=== PATIENT | female | born 1995 | race Caucasian/White ===

== ENCOUNTER 2020-02-28 13:07 | Emergency (ER) | payer SELFPAY ==
--- NOTE | 2020-02-28 14:10 | EDPHYS ---
Physician Documentation [facility] Name: Jose Brand Age: 24 yrs Sex: Female : 1995 Arrival Date: 02/28/2020 Time: 13:13 Bed 14 Private MD: ED Physician Brandon Brown HPI: 02/27 13:26 This 24 yrs old Female presents to ER via Ambulatory with complaints of mya Toothache. 13:26 The patient presents with broken tooth/teeth, pain, swelling. The problem is located in mya the lower left third molar and lower right second molar. Onset: The symptoms/episode began/occurred 2 day(s) ago. Duration: The symptoms are continuous, and are steadily getting worse. Modifying factors: The symptoms are alleviated by nothing, the symptoms are aggravated by chewing, cold fluids, talking. Associated signs and symptoms: Pertinent positives: inability to eat, pain, swelling, Pertinent negatives: chills, fever. Severity of symptoms: At their worst the symptoms were moderate, in the emergency department the symptoms have improved, mildly. The patient has experienced similar episodes in the past, several times. 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 - Social history:: Smoking status: Patient reports the use of cigarette tobacco products, smokes one-half pack cigarettes per day. - Family history:: not pertinent. ROS: 13:26 Constitutional: Negative for fever, chills, and weight loss, Eyes: Negative for injury, mya pain, redness, and discharge, Neck: Negative for injury, pain, and swelling, Cardiovascular: Negative for chest pain, palpitations, and edema, Respiratory: Negative for shortness of breath, cough, wheezing, and pleuritic chest pain, Abdomen/GI: Negative for abdominal pain, nausea, vomiting, diarrhea, and constipation, Back: Negative for injury and pain, : Negative for injury, bleeding, discharge, and swelling, MS/Extremity: Negative for injury and deformity, Skin: Negative for injury, rash, and discoloration, Neuro: Negative for headache, weakness, numbness, tingling, and seizure, Psych: Negative for depression, anxiety, suicide ideation, homicidal ideation, and hallucinations, Allergy/Immunology: Negative for hives, rash, and allergies, Endocrine: Negative for neck swelling, polydipsia, polyuria, polyphagia, and marked weight changes, Hematologic/Lymphatic: Negative for swollen nodes, abnormal bleeding, and unusual bruising. 13:26 ENT: Positive for Teeth pain Exam: 13:26 Constitutional: This is a well developed, well nourished patient who is awake, alert, mya and in no acute distress. Eyes: Pupils equal round and reactive to light, extra-ocular motions intact. Lids and lashes normal. Conjunctiva and sclera are non-icteric and not injected. Cornea within normal limits. Periorbital areas with no swelling, redness, or edema. Neck: Trachea midline, no thyromegaly or masses palpated, and no cervical lymphadenopathy. Supple, full range of motion without nuchal rigidity, or vertebral point tenderness. No Meningismus. Chest/axilla: Normal chest wall appearance and motion. Nontender with no deformity. No lesions are appreciated. Cardiovascular: Regular rate and rhythm with a normal S1 and S2. No gallops, murmurs, or rubs. Normal PMI, no JVD. No pulse deficits. Respiratory: Lungs have equal breath sounds bilaterally, clear to auscultation and percussion. No rales, rhonchi or wheezes noted. No increased work of breathing, no retractions or nasal flaring. Abdomen/GI: Soft, non-tender, with normal bowel sounds. No distension or tympany. No guarding or rebound. No evidence of tenderness throughout. Back: No spinal tenderness. No costovertebral tenderness. Full range of motion. Skin: Warm, dry with normal turgor. Normal color with no rashes, no lesions, and no evidence of cellulitis. MS/ Extremity: Pulses equal, no cyanosis. Neurovascular intact. Full, normal range of motion. Neuro: Awake and alert, GCS 15, oriented to person, place, time, and situation. Cranial nerves II-XII grossly intact. Motor strength 5/5 in all extremities. Sensory grossly intact. Cerebellar exam normal. Normal gait. 13:26 Head/face: Noted is tenderness, that is mild, of the right jaw and left jaw. Vital Signs: 13:13 BP 130 / 84; Pulse 97; Resp 19 S; Temp 97.7(TE); Pulse Ox 100% on R/A; Weight 71.21 kg ca1 (R); Height 5 ft. 7 in. (170.18 cm) (R); Pain 7/10; 13:57 BP 112 / 81; Pulse 81; Resp 18; Temp 98(TE); Pulse Ox 99% on R/A; Pain 7/10; ks7 14:22 BP 97 / 54; Pulse 81; Resp 18; Temp 98(TE); Pulse Ox 100% on R/A; Pain 7/10; ks7 14:50 BP 92 / 63; Pain 0/10; ks7 14:51 BP 92 / 63; Pain 0/10; ks7 13:13 Body Mass Index 24.59 (71.21 kg, 170.18 cm) ca1 MDM: 13:20 Patient medically screened. [facility] 14:08 Differential diagnosis: dental caries, gingivitis, dental abscess. Data reviewed: vital mya signs, nurses notes, lab test result(s). Data interpreted: manager monitoring: rate is 81 beats/min, rhythm is regular. Counseling: I had a detailed discussion with the patient and/or guardian regarding: the historical points, exam findings, and any diagnostic results supporting the discharge/admit diagnosis, lab results, the need for outpatient follow up, for definitive care, a dentist. ED course: non toxic, well hydrated, no trismus. 02/27 14:18 Order name: Urine Dipstick--Ancillary (enter results) 02/27 14:18 Order name: Urine --Ancillary (enter results) 02/27 13:25 Order name: Urine Dipstick-Ancillary (obtain specimen); Complete Time: 14:08 mya 02/27 13:25 Order name: Urine Test (obtain specimen); Complete Time: 14:08 [facility] Administered Medications: 14:21 Drug: Motrin 600 mg Route: PO; ks7 14:51 Follow up: BP 92 / 63; Pain 0/10 Adult ks7 14:21 Drug: Clindamycin 300 mg Route: PO; ks7 14:50 Follow up: BP 92 / 63; Pain 0/10 Adult ks7 Disposition: 02/28/20 14:10 Discharged to Home. Impression: Dental caries, Dental root caries. - Condition is Stable. - Discharge Instructions: Dental Caries, Adult, Dental Pain, Dental Pain, [id number], Diet and Dental Disease. - Prescriptions for Clindamycin HCl 150 mg Oral Capsule - take 2 capsule by ORAL route every 6 hours for 7 days; 56 capsule. Ibuprofen 600 mg Oral Tablet - take 1 tablet by ORAL route every 8 hours As needed take with food; 21 tablet. - Medication Reconciliation Form, Thank You Letter, Antibiotic Education, Prescription Opioid Use form. - Follow up: Private Physician; When: 2 - 3 days; Reason: Recheck today's complaints, Continuance of care, Re-evaluation by your physician. Follow up: Jett Knowles; When: 2 - 3 days; Reason: Recheck today's complaints, Re-evaluation by your physician. - Problem is new. - Symptoms have improved. Signatures: Dispatcher [employer] EDMS Brandon Brown MD MD cha Acob, Cheryl, RN RN [facility] Stella Hull RN RN ks7 Corrections: (The following items were deleted from the chart) 14:52 14:10 02/28/2020 14:10 Discharged to Home. Impression: Dental caries; Dental root ks7 caries. Condition is Stable. Discharge Instructions: Dental Caries, Adult, Dental Pain, Dental Pain, [id number], Diet and Dental Disease. Prescriptions for Clindamycin HCl 150 mg Oral Capsule - take 2 capsule by ORAL route every 6 hours for 7 days; 56 capsule, Ibuprofen 600 mg Oral Tablet - take 1 tablet by ORAL route every 8 hours As needed take with food; 21 tablet. and Forms are Medication Reconciliation Form, Thank You Letter, Antibiotic Education, Prescription Opioid Use. Follow up: Private Physician; When: 2 - 3 days; Reason: Recheck today's complaints, Continuance of care, Re-evaluation by your physician. Follow up: Jett Knowles; When: 2 - 3 days; Reason: Recheck today's complaints, Re-evaluation by your physician. Problem is new. Symptoms have improved. mya
--- NOTE | 2020-02-28 14:10 | ER ---
Nurse's Notes [facility] Name: Jose Brand Age: 24 yrs Sex: Female : 1995 Arrival Date: 02/28/2020 Time: 13:13 Bed 14 Private MD: Diagnosis: Dental caries;Dental root caries Presentation: 02/27 13:13 Chief complaint: Patient states: Tooth broke off since beginning of the month, not ca1 thinks it's infected. Reports pain. Coronavirus screen: Patient denies a cough. Patient denies shortness of breath or difficulty breathing. Patient denies measured and/or subjective temperature greater than 100.4F prior to today's visit. Patient denies travel on a cruise ship or to a country the [facility] currently lists as an affected area. Patient denies contact with known and/or suspected case of COVID-19. Proceed with normal triage. Ebola Screen: Patient negative for fever greater than or equal to 101.5 degrees Fahrenheit, and additional compatible Ebola Virus Disease symptoms Patient denies exposure to infectious person. Patient denies travel to an Ebola-affected area in the 21 days before illness onset. No symptoms or risks identified at this time. Initial Sepsis Screen: Does the patient meet any 2 criteria? No. Patient's initial sepsis screen is negative. Does the patient have a suspected source of infection? No. Patient's initial sepsis screen is negative. Risk Assessment: Do you want to hurt yourself or someone else? Patient reports no desire to harm self or others. Onset of symptoms was February 28, 2020. 13:13 Method Of Arrival: Ambulatory ca1 13:13 Acuity: ANGELA 5 ca1 Triage Assessment: 13:57 General: Appears in no apparent distress. Behavior is calm, cooperative, Smells of. ks7 Pain: Complains of pain in mouth upper right molar Pain currently is 7 out of 10 on a pain scale. Quality of pain is described as aching, Pain began 2 weeks. EENT: Reports pain toothache, R upper molar. 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 - Social history:: Smoking status: Patient reports the use of cigarette tobacco products, smokes one-half pack cigarettes per day. - Family history:: not pertinent. Screenin:59 Abuse screen: Denies threats or abuse. Denies injuries from another. Nutritional ks7 screening: No deficits noted. Tuberculosis screening: No symptoms or risk factors identified. Fall Risk None identified. Assessment: 13:59 EENT: Reports broken tooth, R upper molar, pain x 2 weeks. ks7 14:50 Reassessment: Patient states feeling better. ks7 Vital Signs: 13:13 BP 130 / 84; Pulse 97; Resp 19 S; Temp 97.7(TE); Pulse Ox 100% on R/A; Weight 71.21 kg ca1 (R); Height 5 ft. 7 in. (170.18 cm) (R); Pain 7/10; 13:57 BP 112 / 81; Pulse 81; Resp 18; Temp 98(TE); Pulse Ox 99% on R/A; Pain 7/10; ks7 14:22 BP 97 / 54; Pulse 81; Resp 18; Temp 98(TE); Pulse Ox 100% on R/A; Pain 7/10; ks7 14:50 BP 92 / 63; Pain 0/10; ks7 14:51 BP 92 / 63; Pain 0/10; ks7 13:13 Body Mass Index 24.59 (71.21 kg, 170.18 cm) ca1 ED Course: 13:13 Patient arrived in ED. as 13:15 Triage completed. ca1 13:19 Arm band placed on right wrist. ca1 13:20 Brandon Brown MD is Attending Physician. [facility] 13:37 Stella Hull, LYNDON is Primary Nurse. ks7 13:59 Patient has correct armband on for positive identification. Bed in low position. Call ks7 light in reach. Side rails up X2. 13:59 No provider procedures requiring assistance completed. Patient did not have IV access ks7 during this emergency room visit. 14:10 Jett Knowles DDS is Referral Physician. [facility] Administered Medications: 14:21 Drug: Motrin 600 mg Route: PO; ks7 14:51 Follow up: BP 92 / 63; Pain 0/10 Adult ks7 14:21 Drug: Clindamycin 300 mg Route: PO; ks7 14:50 Follow up: BP 92 / 63; Pain 0/10 Adult ks7 Outcome: 14:10 Discharge ordered by . mya 14:50 Discharged to home ambulatory. ks7 14:50 Condition: good 14:50 Discharge instructions given to patient, Instructed on discharge instructions, follow up and referral plans. medication usage, Demonstrated understanding of instructions, follow-up care, medications, Prescriptions given X 2. 14:52 Patient left the ED. ks7 Signatures: Brandon Brown MD MD cha Martinez, Amelia as Acob, Cheryl, RN RN Stella Acevedo RN RN ks7
[2020-02-28] MEDS ORDERED: IBUPROFEN 200 MG TAB PO ONE (14:28)
[2020-02-28] MEDS ORDERED: IBUPROFEN 400 MG TAB ONE (14:29)
[2020-02-28 15:12] VITALS: TEMP 98
[2020-02-28 15:13] VITALS: O2SAT 100
[2020-02-28 15:14] VITALS: BP 92/63
[2020-02-28 21:49] LABS: Urine Blood NEGATIVE (NEG); Urine Glucose NEGATIVE (NEG); Urine Protein NEGATIVE (NEG); Urine Specific Gravity 1.015 (1.005-1.030)
== END 2020-02-28 14:52 | disposition home or self-care (01) ==
LOC: ER 13:07
DX: K02.7 Dental root caries (principal); K02.9 Dental caries, unspecified; E07.9 Disorder of thyroid, unspecified; F17.210 Nicotine dependence, cigarettes, uncomplicated; Z88.1 Allergy status to other antibiotic agents; Z88.5 Allergy status to narcotic agent; Z88.8 Allergy status to other drugs, medicaments and biological substances
CPT/HCPCS: 81003; 81025; 99283

== ENCOUNTER 2020-03-11 12:55 | Emergency (ER) | payer SELFPAY ==
--- NOTE | 2020-03-11 13:39 | ER ---
Nurse's Notes [facility] Name: Jose Brand Age: 24 yrs Sex: Female : 1995 Arrival Date: 03/11/2020 Time: 12:59 Bed 6 Private MD: Diagnosis: Dental pain: Right maxilla Presentation: 03/11 13:06 Chief complaint: Patient states: Right upper jaw tooth pain for 5 days. Here about 2 ll1 weeks ago for dental pain on there other side of her mouth. No fever. Coronavirus screen: Client denies travel out of the [place] in the last 14 days. At this time, the client does not indicate any symptoms associated with coronavirus-19. Ebola Screen: Patient denies travel to an Ebola-affected area in the 21 days before illness onset. Initial Sepsis Screen: Does the patient meet any 2 criteria? No. Patient's initial sepsis screen is negative. Risk Assessment: Do you want to hurt yourself or someone else? Patient reports no desire to harm self or others. Onset of symptoms was March 06, 2020. 13:06 Method Of Arrival: Ambulatory ll1 13:06 Acuity: ANGELA 5 ll1 Historical: - Allergies: 13:08 Geodon; ll1 13:08 Keflex; ll1 13:08 NYSTATIN; ll1 13:08 Vicodin; ll1 13:08 zipraxon; ll1 - PMHx: 13:08 Thyroid problem; ll1 - PSHx: 13:08 None; ll1 - Immunization history:: Flu vaccine is not up to date. - Social history:: Smoking status: Patient reports the use of cigarette tobacco products, smokes one pack cigarettes per day. Patient uses currently at [facility] for drug/alcohol addiction.. Screenin:37 Abuse screen: Denies threats or abuse. Denies injuries from another. Nutritional ss screening: No deficits noted. Tuberculosis screening: Never had TB. Fall Risk None identified. Assessment: 13:36 General: Appears uncomfortable, Behavior is cooperative, tearful. Denies fever, feeling ss ill, fatigue, chills. Pain: Complains of pain in right buccal mucosa Pain currently is 10 out of 10 on a pain scale. Quality of pain is described as aching, throbbing, Pain began 4-5 days ago Is continuous. Neuro: Level of Consciousness is awake, alert, obeys commands, Oriented to person, place, time, Appropriate for age. Cardiovascular: Capillary refill < 3 seconds is brisk in bilateral fingers. Respiratory: Airway is patent Respiratory effort is even, unlabored, Respiratory pattern is regular, symmetrical. GI: Reports nausea, Patient currently denies diarrhea, vomiting. EENT: Oral mucosa is moist. Throat is clear Reports Pt states, "my top wisdom tooth broke up a while back and now it hurts all on that right side.". Derm: Skin is intact, is healthy with good turgor, Skin is dry, Skin is pink, warm \\T\\ dry. normal. Musculoskeletal: Circulation, motion, and sensation intact. Range of motion: intact in all extremities, Swelling absent. Vital Signs: 13:06 BP 135 / 95; Pulse 85; Resp 17; Temp 98.5; Pulse Ox 100% ; Weight 74.84 kg; Height 5 ll1 ft. 7 in. (170.18 cm); Pain 10/10; 13:06 Body Mass Index 25.84 (74.84 kg, 170.18 cm) ll1 ED Course: 12:59 Patient arrived in ED. ds1 13:02 Coleman Aguiar MD is Attending Physician. kdr 13:08 Triage completed. ll1 13:09 Arm band placed on Patient placed in an exam room, on a stretcher. ll1 13:36 Roxanna Trivedi, LYNDON is Primary Nurse. ss 13:37 Patient has correct armband on for positive identification. Bed in low position. Call light in reach. 13:37 No provider procedures requiring assistance completed. 13:51 Patient did not have IV access during this emergency room visit. hb Administered Medications: 13:46 Drug: Amoxicillin 500 mg Route: PO; ss 13:46 Drug: traMADol 50 mg Route: PO; Outcome: 13:39 Discharge ordered by . kdr 13:51 Discharged to home ambulatory. hb 13:51 Condition: stable 13:51 Discharge instructions given to patient, Instructed on discharge instructions, follow up and referral plans. medication usage, Demonstrated understanding of instructions, follow-up care, medications, Prescriptions given X 2. 13:51 Patient left the ED. hb Signatures: Coleman Aguiar MD MD [facility] Zoraida Burciaga ds1 Roxanna Trivedi, RN RN ss Kya Ignacio, RN RN hb Jose Cameron, RN RN ll1
--- NOTE | 2020-03-11 13:39 | EDPHYS ---
Physician Documentation [facility] Name: Jose Brand Age: 24 yrs Sex: Female : 1995 Arrival Date: 03/11/2020 Time: 12:59 Bed 6 Private MD: ED Physician Coleman Aguiar HPI: 03/11 13:46 This 24 yrs old Female presents to ER via Ambulatory with complaints of kdr Toothache. 13:46 The patient presents with pain, swelling. The problem is located in the right buccal kdr mucosa, upper right third molar, upper right second molar, upper right first molar and upper right second bicuspid. Onset: The symptoms/episode began/occurred Last weekend. Duration: The symptoms Since last weekend. Modifying factors: The symptoms are alleviated by nothing, the symptoms are aggravated by air, chewing. Associated signs and symptoms: The patient has no apparent associated signs or symptoms. Severity of symptoms: At their worst the symptoms were mild, moderate, just prior to arrival, in the emergency department the symptoms are unchanged. The patient has not experienced similar symptoms in the past. The patient has not recently seen a physician. Historical: - Allergies: 13:08 Geodon; ll1 13:08 Keflex; ll1 13:08 NYSTATIN; ll1 13:08 Vicodin; ll1 13:08 zipraxon; ll1 - PMHx: 13:08 Thyroid problem; ll1 - PSHx: 13:08 None; ll1 - Immunization history:: Flu vaccine is not up to date. - Social history:: Smoking status: Patient reports the use of cigarette tobacco products, smokes one pack cigarettes per day. Patient uses currently at [facility] for drug/alcohol addiction.. ROS: 13:46 Constitutional: Negative for fever, chills, and weight loss, Eyes: Negative for injury, kdr pain, redness, and discharge, Neck: Negative for injury, pain, and swelling, Cardiovascular: Negative for chest pain, palpitations, and edema, Respiratory: Negative for shortness of breath, cough, wheezing, and pleuritic chest pain, Abdomen/GI: Negative for abdominal pain, nausea, vomiting, diarrhea, and constipation, Back: Negative for injury and pain, : Negative for injury, bleeding, discharge, and swelling, MS/Extremity: Negative for injury and deformity, Skin: Negative for injury, rash, and discoloration, Neuro: Negative for headache, weakness, numbness, tingling, and seizure activity. Psych: Negative for depression, anxiety, suicide ideation, homicidal ideation, and hallucinations, Allergy/Immunology: Negative for hives, rash, and allergies, Endocrine: Negative for neck swelling, polydipsia, polyuria, polyphagia, and marked weight changes, Hematologic/Lymphatic: Negative for swollen nodes, abnormal bleeding, and unusual bruising. 13:46 ENT: Positive for dental pain, of the right cheek and right buccal mucosa. Exam: 13:46 Constitutional: This is a well developed, well nourished patient who is awake, alert, kdr and in no acute distress. Head/Face: Normocephalic, atraumatic. Eyes: Pupils equal round and reactive to light, extra-ocular motions intact. Lids and lashes normal. Conjunctiva and sclera are non-icteric and not injected. Cornea within normal limits. Periorbital areas with no swelling, redness, or edema. Neck: Trachea midline, no thyromegaly or masses palpated, and no cervical lymphadenopathy. Supple, full range of motion without nuchal rigidity, or vertebral point tenderness. No Meningismus. Chest/axilla: Normal chest wall appearance and motion. Nontender with no deformity. No lesions are appreciated. 13:46 ENT: Dental exam: pain, that is mild, specifically in the upper right third molar (#1), upper right second molar (#2) and upper right first molar (#3). Vital Signs: 13:06 BP 135 / 95; Pulse 85; Resp 17; Temp 98.5; Pulse Ox 100% ; Weight 74.84 kg; Height 5 ll1 ft. 7 in. (170.18 cm); Pain 10/10; 13:06 Body Mass Index 25.84 (74.84 kg, 170.18 cm) ll1 MDM: 13:39 Patient medically screened. kdr 13:46 Data reviewed: vital signs, nurses notes. Counseling: I had a detailed discussion with kdr the patient and/or guardian regarding: the historical points, exam findings, and any diagnostic results supporting the discharge/admit diagnosis, the need for outpatient follow up. Administered Medications: 13:46 Drug: Amoxicillin 500 mg Route: PO; ss 13:46 Drug: traMADol 50 mg Route: PO; Disposition: 03/11/20 13:39 Discharged to Home. Impression: Dental pain: Right maxilla. - Condition is Stable. - Discharge Instructions: Dental Pain, [id number]. - Prescriptions for Amoxicillin 500 mg Oral Capsule - take 1 capsule by ORAL route every 8 hours for 10 days; 30 tablet. Tramadol 50 mg Oral Tablet - take 1 tablet by ORAL route every 8 hours as needed; 12 tablet. - Medication Reconciliation Form, Thank You Letter, Antibiotic Education, Prescription Opioid Use form. - Follow up: Private Physician; When: 2 - 3 days; Reason: If symptoms return, Further diagnostic work-up, Recheck today's complaints, Continuance of care, Re-evaluation by your physician. - Problem is new. - Symptoms are unchanged. Signatures: Coleman Aguiar MD MD [facility] Roxanna Trivedi RN RN Kya Ignacio RN RN Jose Cameron RN RN ll1 Corrections: (The following items were deleted from the chart) 13:51 13:39 03/11/2020 13:39 Discharged to Home. Impression: Dental pain: Right maxilla. hb Condition is Stable. Forms are Medication Reconciliation Form, Thank You Letter, Antibiotic Education, Prescription Opioid Use. Follow up: Private Physician; When: 2 - 3 days; Reason: If symptoms return, Further diagnostic work-up, Recheck today's complaints, Continuance of care, Re-evaluation by your physician. Problem is new. Symptoms are unchanged. kdr
[2020-03-11] MEDS ORDERED: AMOXICILLIN TRIHYDR 250 MG CAP ONE (13:51)
[2020-03-11] MEDS ORDERED: TRAMADOL HCL 50 MG TAB ONE (13:52)
[2020-03-11 13:58] VITALS: BP 135/95; TEMP 98.5; O2SAT 100
--- OUTSIDE RECORDS SUMMARY | 2020-03-11 14:33 | XMS REPORT | Clinical Summary ---
:1995 Author Organization [facility] Address [address] [place] [address] Care Team Providers Name Role Phone Asked, Pcp Primary Care Provider Unavailable Allergies Active Allergy Reactions Severity Noted Date Comments Ziprasidone Hcl Anaphylaxis High 02/02/2020 Hydrocodone Hives 02/02/2020 Cephalexin Hives 02/02/2020 Nystatin Other (See Comments) 02/02/2020 Burn Olanzapine Anaphylaxis High 02/02/2020 Medications Medication Sig Dispensed Refills Start Date End Date Status risperiDONE Take 1 tablet (1 60 tablet 0 02/04/2020 (RisperDAL) 1 MG mg total) by 0 tabletIndications: mouth 2 (two) depression treatment times a day for adjunct 30 days .additional medications to treat depression. benztropine Take 1 tablet (1 60 tablet 0 02/04/2020 (COGENTIN) 1 MG mg total) by 0 tabletIndications: mouth 2 (two) drug-induced times a day for extrapyramidal 30 days reaction .extrapyramidal symptoms as a result of taking the medication. divalproex (DEPAKOTE Take 4 capsules 120 capsule 0 02/05/2020 SPRINKLE) 125 (500 mg total) by 0 mgIndications: mouth nightly for bipolar disorder 30 days .manic-depression . hydrOXYzine (ATARAX) Take 1 tablet (25 30 tablet 0 02/04/2020 25 MG mg total) by 0 tabletIndications: mouth every 4 anxiety (four) hours as needed for anxiety for up to 30 days .anxious. nicotine (NICODERM Place 1 patch on 30 patch 0 02/05/2020 CQ) 21 mg/24 the skin daily 0 hrIndications: for 30 days .stop smoking cessation smoking. Active Problems Problem Noted Date Major depressive disorder, recurrent episode 0 Methamphetamine abuse 02/02/2020 Resolved Problems Problem Noted Date Resolved Date Depression 02/02/2020 02/02/2020 Encounters Date Type Specialty Care Team Description 02/12/2020 Telephone Home Health Services Parag Littlejohn, PhD 02/02/2020 - Hospital Encounter Psychiatry Paige Joseph 02/04/2020 MD Viji Perkins Iram Fatima, MD 02/01/2020 Intake Access after 03/11/2019 Social History Tobacco Use Types Packs/Day Years Used Date Current Every Day Smoker Cigarettes 1.5 9 Smokeless Tobacco: Never Used Tobacco Cessation: Ready to Quit: No; Co unseling Given: Yes Alcohol Use Drinks/Week oz/Week Comments Never Alcohol Habits Answer Date Recorded How often do you have a drink containing alcohol? Never 02/02/2020 How many drinks containing alcohol do you have on a typical Not asked day when you are drinking? How often do you have six or more drinks on one occasion? No t asked Sex Assigned at Date Recorded Not on file Job Start Date Occupation Industry Not on file Not on file Not on file Travel History Travel Start Travel End No recent travel history available. Last Filed Vital Signs Vital Sign Reading Time Taken Comments Blood Pressure 103/59 02/04/2020 5:57 AM CDT Pulse 75 02/04/2020 5:57 AM CDT Temperature 37 C (98.6 F) 02/04/2020 12:22 PM CDT Respiratory Rate 18 02/04/2020 5:57 AM CDT Oxygen Saturation 99% 02/04/2020 5:57 AM CDT Inhaled Oxygen Concentration - - Weight 70.8 kg (156 lb 1.6 oz) 02/04/2020 5:57 AM CDT Height 170.2 cm (5' 7") 02/02/2020 5:35 AM CDT Body Mass Index 24.45 02/02/2020 5:35 AM CDT Plan of Treatment Health Maintenance Due Date Last Done Comments CHLAMYDIA SCREENING 2011 CERVICAL CANCER SCREENING 2016 INFLUENZA VACCINE 03/06/2020 Procedures Procedure Name Priority Date/Time Associated Comments Diagnosis CHLAMYDIA GONORRHOEAE Routine 02/04/2020 12:00 Re sults for this AND TRICHOMONAS PANEL PM CDT proced ure are in the results section. SYPHILIS TOTAL Routine 02/02/2020 5:57 Results f or this ANTIBODY AM CDT procedure are i n the results section. LIPID PANEL Routine 02/02/2020 5:57 Results for this AM CDT procedure are i n the results section. HIV AG/AB COMBINATION Routine 02/02/2020 5:57 Re sults for this AM CDT procedure are i n the results section. HEMOGLOBIN A1C Routine 02/02/2020 5:57 Results f or this AM CDT procedure are i n the results section. HCG QUALITATIVE, Routine 02/02/2020 5:57 Results for this SERUM SCREEN AM CDT procedure are i n the results section. after 03/11/2019 Results Chlamydia gonorrhoeae and trichomonas panel (02/04/2020 12:00 PM CDT) Chlamydia Negative for Chlamydia trachomatis. [facility] [place] [facility] trachomatis by PCR Comment: HOSPITAL Specimen Information Specimen Source: Urine Specimen Site: Clean catch Neisseria Negative for [place] [facility] gonorrhoeae by PCR [facility] gonorrhoeae. Trichomonas Negative for [place] [facility] vaginalis by PCR Trichomonas [facility] vaginalis. Specimen Urine Performing Organization Address City/[facility]/Zipcode Phone Number [facility] DEPARTMENT OF PATHOLOGY AND [address] [place] [address] [phone] [address] Syphilis total antibody (02/02/2020 5:57 AM CDT) Syphilis total Non-reactiveComment Non-reactive [facility] antibody : No serological HOSPITAL evidence of syphilis infection. Specimen Blood Performing Organization Address City/State/Zipcode Phone Number [facility] DEPARTMENT OF PATHOLOGY AND [address] [place] [address] [phone] [address] HIV Ag/Ab combination (02/02/2020 5:57 AM CDT) HIV Ag/Ab combination Non-reactive Non-reactive [facility] Specimen Blood Performing Organization Address City/[facility]/Zipcode Phone Number [facility] DEPARTMENT OF PATHOLOGY AND [address] [place] [phone] [facility] [address] [place] [address] hCG qualitative, serum screen (02/02/2020 5:57 AM CDT) hCG qualitative, NegativeComment: [facility] serum Sensitivity of HCG HOSPITAL test: 25 mIU/mL Specimen Blood Performing Organization Address City/[facility]/Zipcode Phone Number [facility] DEPARTMENT OF PATHOLOGY AND [address] [place] [phone] [facility] [address] [place] [phone] Hemoglobin A1c (02/02/2020 5:57 AM CDT) Hemoglobin A1C 5.6 4.0 - 5.6 % [facility] Comment: HOSPITAL HbA1c cutoffs for diagnosing diabetes: 4.0% - 5.6% = normal 5.7% - 6.4% = increased risk for diabetes (prediabetes )9 >=6.5% = diabetes9 Goals for glycemic control (ADA 2016) < 7.0% Target for non adults with diabetes. More or less stringent targets may be appropriate for individual patients. <7.5% Target for Children and adolescents with type 1 diabetes. Specimen Blood Performing Organization Address City/State/Zipcode Phone Number [facility] DEPARTMENT OF PATHOLOGY AND [address] [place] [address] [phone] [address] Lipid panel (02/02/2020 5:57 AM CDT) Cholesterol 107 <200 mg/dL [facility] Triglycerides 84 <150 mg/dL [facility] HDL cholesterol 43 >40 mg/dL [facility] LDL cholesterol 56Comment: Result <100 mg/dL [place] obtained by direct [facility] LDL measurement [facility] Lipid panel [facility] interpretation Comment: [facility] Total Cholesterol (mg/dL) HOSPIT [place] <200 Desirable 200-239 Borderline-high >=240 High Triglycerides (mg/dL) <150 Normal 150-199 Borderline-high 200-499 High >=500 Very high HDL Cholesterol (mg/dL) <40 Low (male) <40 Low (female) LDL Cholesterol (mg/dL) <100 Optimal 100-129 Near or above optimal 130-159 Borderline-high 160-189 High >=190 Very high Risk Catergories that modify LDL goals. Risk Catergories LDL goal (mg/d L) CHD and CHD risk equivalent <100 (10-year risk >20%) Multiple (2+) risk factors <130 (10-year risk =<20%) 0-1 risk factors <160 (<10-year risk) Defining levels of lipids in metabolic syndrome Triglycerides >=150 mg/dL HDL Cholesterol Men <40 mg /dL Women <40 mg/ dL Non-HDL cholesterol is a second target for therapy in persons with high triglycerides (>=200 mg/dL) Specimen Blood Performing Organization Address City/State/Zipcode Phone Number [facility] DEPARTMENT OF PATHOLOGY AND [address] [place], [place] [address] GENOMIC MEDICINE [facility] [address] [place] [phone] after 03/11/2019 Advance Directives For more information, please contact: [phone] Type Date Recorded Patient Primary Care Physician Explanati on Advance Directives, Living Will 02/02/2020 2:59 AM and Medical Power of Knowledge Manager
--- OUTSIDE RECORDS SUMMARY | 2020-03-11 14:33 | XMS REPORT | Summary of Care ---
:1995 Author Organization [facility] Address [address] [place] [address] Care Team Providers Name Role Phone Pcp, Does Not Have A Primary Care Provider Reason for Referral MRI/CAT Scan (STAT) Status Reason Specialty Diagnoses / Referred By Referred To Procedures Contact Contact New Request Diagnostic Diagnoses Drug intoxication with perceptual disturbance Generalized abdominal pain Wendy Trujillo Radiology Procedures CT Abdomen/Pelvis W/O Contrast MD Ilana [address] [place] [phone] Reason for Visit Reason Comments Abdominal Pain Auth/Cert Status Reason Specialty Diagnoses / Referred By Referred To Procedures Contact Contact Emergency Medicine [facility] r[facility] Dept [address] [place] [phone] Fax: Encounter Details Date Type Department Care Team Description 01/27/2020 - Emergency [facility] Wendy Trujillo Drug intoxic ation with perceptual disturbance (Primary Dx); 01/28/2020 Department MD Ilana Generalized abdominal pain [address] [place] [phone] Allergies Active Allergy Reactions Severity Noted Date Comments Ziprasidone Hcl Anaphylaxis High 10/13/2019 Cephalexin Itching 11/19/2016 Pt originally s aid she wasn't allergic to any medicines and t hen she revealed itchin g with keflex Hydrocodone-Acetaminophen Hives Low 10/13/2019 Olanzapine Anaphylaxis High 10/13/2019 documented as of this encounter (statuses as of 01/28/2020) Medications No known medicationsdocumented as of this encounter (statuses as of 01/28/2020) Active Problems Problem Noted Date Tobacco use disorder 08/20/2013 Enlarged thyroid 08/20/2013 Overview: TSH and Free T4 ordered, referral to HR to evaluate documented as of this encounter (statuses as of 01/28/2020) Resolved Problems Problem Noted Date Resolved Date Anemia, 03/14/2014 12/22/2016 Normal delivery 03/13/2014 05/09/2014 Overview: Labor at term; ; minor lac repair ed Active Labor SROM 03/12/2014 03/13/2014 Research Study: ARRIVE-Induction of Labor Arm 03/02/2014 05/09/2014 Overview: This patient was consented in the ARRIVE Research Study on 03/02/14. IRB # [id number], PI Dr. Yancey Patient was randomized into the study on 03/09/2014 and will be in the following group: Induction of Labor Arm i If favorable (Montero score ? 5), undergo induction via oxytocin at 39.0 39.4 weeks. If unfavorable (Montero score < 5), undergo cervical ripening at 39.0 39.4 weeks (method left to the discretion of the provider) in conjunction with or followed by oxytocin,unless a contraindication arises. Induction group should be given adequate time to labor before considered failed. Failed = at least 12 hours have elapsed since both ROM and use of uterine stimulant, and patient remains in latent labor. 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 of this encounter (statuses as of 01/28/2020) Immunizations Name Administration Dates Next Due DTAP 12/25/2001, 06/24/2001, 03/26/2001, 11/04/1998 DTP 03/20/1996, 1995, 1995 HEPATITIS A 02/09/2003, 06/24/2001, 03/26/2001 HIB 4 Dose Schedule 03/20/1996, 1995, 1995 HPV 05/12/2014, 03/13/2014 Hep B, Adol or Pedi Dosage 12/25/2001, 06/24/2001, 1, 03/20/1996, 1995, 1995 MMR 02/09/2003, 11/04/1998, 03/20/1996 Meningococcal Polysaccharide (groups 03/01/2009 A, C, Y and W-135) conjugate vaccine (MCV4P) PPD (TB) 02/09/2003 Polio (IPV/OPV) 06/24/2001, 03/26/2001, 03/20/1996, 1995, 1995 TDAP 12/17/2013, 03/01/2009 Td 02/09/2003 Varicella (varivax)(chicken pox) 03/26/2001, 11/04/1998 documented as of this encounter Social History Tobacco Use Types Packs/Day Years Used Date Former Smoker Smokeless Tobacco: Never Used Alcohol Use Drinks/Week oz/Week Comments Not Currently Sex Assigned at Date Recorded Not on file Job Start Date Occupation Industry Not on file Not on file Not on file Travel History Travel Start Travel End No recent travel history available. COVID-19 Exposure Response Date Recorded In the last month, have you been in contact with No / Unsure 01/27/2020 8:36 PM CDT someone who was confirmed or suspected to have Coronavirus / COVID-19? documented as of this encounter Last Filed Vital Signs Vital Sign Reading Time Taken Comments Blood Pressure 120/76 01/28/2020 12:37 AM CDT Pulse 93 01/28/2020 12:37 AM CDT Temperature 36.8 C (98.2 F) 01/28/2020 12:37 AM CDT Respiratory Rate 18 01/28/2020 12:37 AM CDT Oxygen Saturation 99% 01/28/2020 12:37 AM CDT Inhaled Oxygen Concentration - - Weight 71.2 kg (157 lb) 01/27/2020 8:32 PM CDT Height - - Body Mass Index 24.59 10/13/2019 9:38 AM CDT documented in this encounter Discharge Instructions Wendy Prescott MD - 01/28/2020Diagnosis: Methamphetamine abuse, Drug intoxication, Abdominal pain Recommend follow-up with a primary care Doctor as needed. Return to ER and seek further medical attention for worsening symptoms, fever, persistent vomiting, any other concerns. May follow-up with a provider of your choice, such as: 1. A physician of your choice 2. [address] [place] [address], [address] [place] [address] 3. [facility], [address] [place] [address] If you wish to follow up with the [facility], you may try these options (clinic appointments available on a [id number] basis): 1. Schedule an appointment at [email or web address] 2. Call the [facility] Access Center at or 3. Call you [facility] physician's office directly if you are already an established [facility] patient. AttachmentsThe following attachments cannot be sent through Care Everywhere. Abdominal Pain, Adult (Chilean)Methamphetamine Abuse and Addiction, Understanding (Chilean)documented in this encounter Plan of Treatment Name Type Priority Associated Diagnoses Date/Ti ms CT Abdomen/Pelvis W/O IMAGING STAT Drug intoxication w ith 01/27/2020 11:15 PM Contrast perceptual distu rbance CDT Generalized abdominal pain Health Maintenance Due Date Last Done Comments HPV VACCINES (3 - Female 09/13/2014 05/12/2014, 03/13/2014 3-dose series) INFLUENZA VACCINE (Season 04/06/2020 Ended) CHLAMYDIA SCREENING 10/12/2020 10/13/2019, 03/29/2018, 12/22/2016, Additional history exists Depression Screening 10/12/2020 10/13/2019 PAP SMEAR 10/12/2022 10/13/2019, 12/22/2016 DTaP,Tdap,and Td Vaccines 12/18/2023 12/17/2013, 03/01/2009 , (8 - Td) 02/09/2003, Additional history exists VARICELLA VACCINES Completed 03/26/2001, 11/04/1998 PNEUMOCOCCAL 0-64 YEARS Aged Out No longe r eligible COMBINED SERIES based on patient 's age to complete this topic documented as of this encounter Procedures Procedure Name Priority Date/Time Associated Diagnosis Comme nts CT ABDOMEN PELVIS WO STAT 01/27/2020 11:15 PM Drug intoxica tion with CONTRAST CDT perceptual distu rbance Generalized abdominal pain Procedure Note - [facility], Radia nt Results Inft User - 01/27/2020 11:42 PM CDT EXAM: CT ABDOMEN AND PELVIS WITHOUT CONTRAST HISTORY: Flank pain, stone d isease suspected. COMPARISON: None. DOSE: Total exam DLP 453 mGy -cm TECHNIQUE AND FINDINGS: Cont iguous axial imaging from the level of the superior renal poles through the proximal femurs was performed without the intravenous administration o f contrast. Coronal and sagittal reconstructions were obtaine d. Auto mA and/or iterative reconstruction were used to reduce radiatio n dose. FINDINGS: LIVER: The majority of the l iver is excluded from [id number].. GALLBLADDER AND BILIARY TREE : No biliary ductal dilation. No gallbladder wall thickening. SPLEEN: The majority of the spleen is excluded from [id number]. PANCREAS: No ductal dilation or masses. ADRENAL GLANDS: No adrenal n odules. KIDNEYS: No hydronephrosis, stones, or masses. PERITONEUM AND RETROPERITONE UM: No free air or fluid. LYMPH NODES: No lymphadenopa thy. GI TRACT: No dilation or wal l thickening. Normal appendix (3:61). PELVIS/BLADDER: The urinary bladder is decompressed. No bladder stones detected. The uterus is unremarkable i n size and morphology for given age. The bilateral ovaries unremarkab le in size and morphology for given age. No adnexal masses. VESSELS: Unremarkable. BONES AND SOFT TISSUES: No s uspicious lytic or sclerotic bony lesions. IMPRESSION No renal, ureteral, or bladd er stones. Normal appendix. Preliminary Report Dictated by Resident: Gopi Resendiz Ikwuagwu EXTRA TUBE LT. GREEN STAT 01/27/2020 9:22 PM CDT CBC WITH DIFFERENTIAL STAT 01/27/2020 9:22 PM Drug intoxic ation Results for this CDT with perceptual procedure ar e in disturbance the results section. URINALYSIS STAT 01/27/2020 9:22 PM Drug intoxication Res ults for this CDT with perceptual procedure ar e in disturbance the results section. CBC WITH DIFFERENTIAL Routine 01/27/2020 9:22 PM Drug intoxic ation Results for this CDT with perceptual procedure ar e in disturbance the results section. GALV/CLC ONLY - URINE STAT 01/27/2020 9:22 PM Drug intoxic ation Results for this DRUG (IMMUNOASSAY) - CDT with perceptual proc edure are in 4 ER PANEL disturbance the results section. ETHANOL STAT 01/27/2020 9:22 PM Drug intoxication Res ults for this CDT with perceptual procedure ar e in disturbance the results section. BASIC METABOLIC PANEL STAT 01/27/2020 9:22 PM Drug intoxic ation Results for this (NA, K, CL, CO2, CDT with perceptual procedur e are in GLUCOSE, BUN, disturbance the results CREATININE, CA) section. HEPATIC FUNCTION STAT 01/27/2020 9:22 PM Drug intoxication Results for this PANEL (34672) CDT with perceptual procedure a re in (ALB,T.PRO,BILI disturbance the results T,BU/BC,ALT,AST,ALK section. PHOS) TEST, SERUM STAT 01/27/2020 9:22 PM Drug intoxic ation Results for this CDT with perceptual procedure ar e in disturbance the results section. LIPASE STAT 01/27/2020 9:22 PM Drug intoxication Res ults for this CDT with perceptual procedure ar e in disturbance the results section. documented in this encounter Results EXTRA TUBE LT. GREEN (01/27/2020 9:22 PM CDT) Specimen Blood Performing Organization Address City/State/Zipcode Phone Number [facility] CLIA: [id number], [address] [place], [place] [address] [facility] CBC WITH DIFFERENTIAL (01/27/2020 9:22 PM CDT) Pathologist Sig nature WBC 7.42 4.30 - 11.10 [facility] 10*3/L SERVICES RBC 4.17 3.93 - 5.25 [facility] 10*6/L SERVICES HGB 12.7 11.6 - 15.0 [facility] g/dL SERVICES HCT 37.0 35.7 - 45.2 % [facility] MCV 88.7 80.6 - 95.5 fL [facility] MCH 30.5 25.9 - 32.8 pg [facility] MCHC 34.3 31.6 - 35.1 [facility] g/dL SERVICES RDW-SD 41.1 39.0 - 49.9 fL [facility] RDW-CV 12.7 12.0 - 15.5 % [facility] PLT 333 166 - 358 [facility] 10*3/L SERVICES MPV 10.0 9.5 - 12.9 fL [facility] NRBC/100 WBC 0.0 0.0 - 10.0 /100 [facility] WBCs SERVICES NRBC x10^3 <0.01 10*3/L [facility] GRAN MAT (NEUT) % 64.4 % [facility] IMM GRAN % 0.30 % [facility] LYMPH % 27.0 % [facility] MONO % 7.8 % [facility] EOS % 0.1 % [facility] BASO % 0.4 % [facility] GRAN MAT x10^3(ANC) 4.78 1.88 - 7.09 [facility] 10*3/uL SERVICES IMM GRAN x10^3 <0.03 0.00 - 0.06 [facility] 10*3/uL SERVICES LYMPH x10^3 2.00 1.32 - 3.29 [facility] 10*3/uL SERVICES MONO x10^3 0.58 0.33 - 0.92 [facility] 10*3/uL SERVICES EOS x10^3 <0.03 (L) 0.03 - 0.39 [facility] 10*3/uL SERVICES BASO x10^3 0.03 0.01 - 0.07 [facility] 10*3/uL SERVICES Specimen Blood - VENOUS Performing Organization Address City/State/Zipcode Phone Number [facility] CLIA: [id number], [address] [place], [place] [address] [facility] Ethanol Level (01/27/2020 9:22 PM CDT) Pathologist Sig nature ALCOHOL <10 mg/dL [facility] Specimen Blood - VENOUS Narrative Performed At Toxic Greater than or equal to 80 mg/dL. [facility] NOTE: Whole blood values are approximately 10% to 15% lower than serum and plasma. Performing Organization Address [facility]/Zipcode Phone Number [facility] CLIA: [id number], [address] [place] [address] [facility] Drug Screen ER (01/27/2020 9:22 PM CDT) AMPHET Presumptive Negative [facility] Positive (A) SERVICES Cocaine Metabolite Negative Negative [facility] OPIATES Negative Negative [facility] THC Negative Negative [facility] Specimen Urine - URINE, CLEAN CATCH Narrative Performed At Urine Drug Cutoff Ranges [facility] Amphetamine: 1,000 ng/mL Cocaine: 150 ng/mL Opiates: 300 ng/mL Cannabinoids: 50 ng/mL The results are to be used only for medical (i.e., treatment) purposes. Unconfirmed screening results mus t not be used for non-medical purposes (e.g., employment cristina ting, legal testing). Performing Organization Address [facility] Hospital[facility] Phone Number [facility] CLIA: [id number], [address] [place] [address] [facility] Lipase Serum (01/27/2020 9:22 PM CDT) Pathologist Sig nature LIPASE 282 (H) 0 - 220 U/L [facility] Specimen Blood - VENOUS Performing Organization Address [facility] Hospital[facility]t Phone Number [facility] CLIA: [id number], [address] [place] [address] [facility] Hepatic Function Panel (ALB, T.PRO, BILI T, BU/BC, ALT, AST, ALK PHOS) (01/27/2020 9:22 PM CDT) Pathologist Sig nature TOTAL BILI 0.5 0.1 - 1.1 mg/dL [facility] BILI UNCON 0.7 0.1 - 1.1 mg/dL [facility] BILI CONJ 0.0 0.0 - 0.3 mg/dL [facility] T PROTEIN 7.4 6.3 - 8.2 g/dL [facility] ALBUMIN 4.5 3.5 - 5.0 g/dL [facility] ALK PHOS 67 34 - 122 U/L [facility] ALTv 16 5 - 35 U/L [facility] AST(SGOT) 25 13 - 40 U/L [facility] Specimen Blood - VENOUS Performing Organization Address City/State/Zipcode Phone Number [facility] CLIA: [id number], [address] [place], [place] [address] [facility] Basic Metabolic Panel (NA, K, CL, CO2, GLUCOSE, BUN, CREATININE, CA) (01/27/2020 9:22 PM CDT) [facility] NA 139 135 - 145 [facility] mmol/L SERVICES K 3.4 (L) 3.5 - 5.0 [facility] mmol/L SERVICES CL 103 98 - 108 mmol/L [facility] CO2 TOTAL 26 23 - 31 mmol/L [facility] AGAP 10 2 - 16 [facility] BUN 13 7 - 23 mg/dL [facility] GLUCOSE 108 70 - 110 mg/dL [facility] CREATININE 0.67 0.50 - 1.04 [facility] mg/dL SERVICES CALCIUM 9.4 8.6 - 10.6 [facility] mg/dL SERVICES eGFR Calculation 108.1 mL/min/1.73m2 [facility] (Non- SERVICES [place]) eGFR Calculation 131.1 mL/min/1.73m2 [facility] () SERVICES Specimen Blood - VENOUS Narrative Performed At Association of Glomerular Filtration Rate (GFR) and St aging [facility] of Kidney Disease* + + +------- ------ + | GFR (mL/min/1.73 m2) | With Kidney Damage | Wi gil Kidney Damage + + +------- ------ + | >90 | Stage one | Normal + + +------- ------ + | 60-89 | Stage two | Decreased GFR + + +------- ------ + | 30-59 | Stage three | Stage three + + +------- ------ + | 15-29 | Stage four | Stage four + + +------- ------ + | <15 (or dialysis) | Stage five | Stage five + + +------- ------ + *Each stage assumes the associated GFR level has been in effect for at least three months. Stages 1 to 5, wit h or without kidney disease, indicate chronic kidney disease. Notes: Determination of stages one and two (with eGFR >59mL/min/1.73 m2) requires estimation of kidney damag e for at least three months as defined by structural or func tional abnormalities of the kidney, manifested by either: Pathological abnormalities or Markers of kidney damage (including abnormalities in the composition of the blo od or urine or abnormalities in imaging tests) . Performing Organization Address City/State/Zipcode Phone Number [facility] CLIA: [id number], [address] [place] [address] [facility] Test, Serum (01/27/2020 9:22 PM CDT) Pathologist Sig nature PREG SERUM Negative [facility] Specimen Blood - VENOUS Narrative Performed At Less than 10 IU/L. If low titer or ectopic is [facility] suspected, resubmit specimen in 48-72 hours. Performing Organization Address [facility]/Zipcode Phone Number [facility] CLIA: [id number], [address] [place] [address] [facility] Urinalysis (01/27/2020 9:22 PM CDT) Pathologist Sig nature APPEARANCE Cloudy (A) Clear [facility] COLOR Bell (A) Yellow [facility] PH 5.0 4.8 - 8.0 [facility] SP GRAVITY 1.035 (H) 1.003 - 1.030 [facility] GLU U QUAL Normal Normal [facility] BLOOD Negative Negative [facility] KETONES 5 mg/dL (A) Negative [facility] PROTEIN 500 mg/dL (A) Negative [facility] UROBILIN 2.0 mg/dL (A) Normal [facility] BILIRUBIN Negative Negative [facility] NITRITE Negative Negative [facility] LEUK HEATHER Negative Negative [facility] RBC/HPF 6 (H) 0 - 3 HPF [facility] WBC/HPF 2 0 - 5 HPF [facility] BACTERIA Few (A) Negative [facility] MUCOUS Marked (A) Negative LPF [facility] SQ EPITH 6 (H) <=2 HPF [facility] CA OXALATE 49 (H) <=1 HPF [facility] HYAL CAST 11 (H) <=2 LPF [facility] Specimen Urine - URINE, CLEAN CATCH Performing Organization Address City/[facility]/Zipcode Phone Number [facility] CLIA: [id number], [address] [place] [address] [facility] documented in this encounter Visit Diagnoses Diagnosis Drug intoxication with perceptual distur bance - Primary Generalized abdominal pain Abdominal pain, generalized documented in this encounter"
--- OUTSIDE RECORDS SUMMARY | 2020-03-11 14:34 | XMS REPORT | Summary of Care ---
:1995 Author Organization [facility] - Health Address [address] [place] [address] Care Team Providers Name Role Phone Pcp, Does Not Have A Primary Care Provider Reason for Visit Reason Comments Suicidal ideation Auth/Cert Status Reason Specialty Diagnoses / Referred By Referred To Procedures Contact Contact Emergency Medicine [facility] r[facility] Dept [address] [place] [phone] Fax: Encounter Details Date Type Department Care Team Description 01/30/2020 - Emergency [facility] Philipp Chavez MD [address] [place] [address] [id number] [place] [address] Suicidal ideation (Primary Dx); 02/02/2020 Department Bryan Fletcher MD [address] [place] [address]. [place] [phone] Methamphetamine intoxication [address] [place] [phone] Allergies Active Allergy Reactions Severity Noted Date Comments Ziprasidone Hcl Anaphylaxis High 10/13/2019 Cephalexin Itching 11/19/2016 Pt originally s aid she wasn't nasir rgic to any medicine s and then she reveal ed itching with ke flex Nystatin Unknown - See comments 01/30/2020 Hydrocodone-Acetaminop Hives Low 10/13/2019 hen Olanzapine Anaphylaxis High 10/13/2019 documented as of this encounter (statuses as of 02/02/2020) Medications No known medicationsdocumented as of this encounter (statuses as of 02/02/2020) Active Problems Problem Noted Date Paranoia 01/28/2020 Emotional lability 01/28/2020 Methamphetamine abuse 01/28/2020 Tobacco use disorder 08/20/2013 Enlarged thyroid 08/20/2013 Overview: TSH and Free T4 ordered, referral to HR to evaluate documented as of this encounter (statuses as of 02/02/2020) Resolved Problems Problem Noted Date Resolved Date [...] stimulant, and patient remains in latent labor. 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 documented as of this encounter Last Filed Vital Signs Vital Sign Reading Time Taken Comments Blood Pressure 126/74 02/02/2020 12:49 AM CDT Pulse 68 02/02/2020 12:49 AM CDT Temperature 36.9 C (98.4 F) 02/02/2020 12:49 AM CDT Respiratory Rate 20 02/02/2020 12:49 AM CDT Oxygen Saturation 99% 02/02/2020 12:49 AM CDT Inhaled Oxygen Concentration - - Weight - - Height - - Body Mass Index - - documented in this encounter Plan of Treatment Health Maintenance Due Date [...] encounter Procedures Procedure Name Priority Date/Time Associated Comments Diagnosis COVID-19 (ID NOW RAPID STAT 01/30/2020 9:51 Suicidal ideat ion Results for this TESTING) PM CDT procedure are i n the results section. CBC WITH DIFFERENTIAL STAT 01/30/2020 9:51 Suicidal ideati on Results for this PM CDT procedure are i n the results section. URINALYSIS STAT 01/30/2020 9:51 Suicidal ideation Result s for this PM CDT procedure are i n the results section. CBC WITH DIFFERENTIAL STAT 01/30/2020 9:51 Suicidal ideati on Results for this PM CDT procedure are i n the results section. GALV/CLC ONLY - URINE STAT 01/30/2020 9:51 Suicidal ideati on Results for this DRUG (IMMUNOASSAY) - PM CDT procedu re are in COMPREHENSIVE DRUG the resul ts SCREEN section. ETHANOL STAT 01/30/2020 9:51 Suicidal ideation Result s for this PM CDT procedure are i n the results section. SALICYLATE STAT 01/30/2020 9:51 Suicidal ideation Result s for this PM CDT procedure are i n the results section. ACETAMINOPHEN STAT 01/30/2020 9:51 Suicidal ideation Resul ts for this PM CDT procedure are i n the results section. COMP. METABOLIC PANEL STAT 01/30/2020 9:51 Suicidal ideati on Results for this (95126) PM CDT procedure are i n the results section. TEST, SERUM STAT 01/30/2020 9:51 Suicidal ideati on Results for this PM CDT procedure are i n the results section. CREATINE KINASE STAT 01/30/2020 9:51 Suicidal ideation Res ults for this PM CDT procedure are i n the results section. documented in this encounter Results CBC WITH DIFFERENTIAL (01/30/2020 9:51 PM CDT) Pathologist Sig nature WBC 6.58 4.30 - 11.10 [facility] 10*3/L SERVICES RBC 3.98 3.93 - 5.25 [facility] 10*6/L SERVICES HGB 12.2 11.6 - 15.0 [facility] g/dL SERVICES HCT 35.2 (L) 35.7 - 45.2 % [facility] MCV 88.4 80.6 - 95.5 fL [facility] MCH 30.7 25.9 - 32.8 pg [facility] MCHC 34.7 31.6 - 35.1 [facility] g/dL SERVICES RDW-SD 41.8 39.0 - 49.9 fL [facility] SERVICES RDW-CV 12.8 12.0 - 15.5 % [facility] PLT 318 166 - 358 [facility] 10*3/L SERVICES MPV 9.9 9.5 - 12.9 fL [facility] SERVICES NRBC/100 WBC 0.0 0.0 - 10.0 /100 [facility] WBCs SERVICES NRBC x10^3 <0.01 10*3/L [facility] SERVICES GRAN MAT (NEUT) % 51.9 % [facility] IMM GRAN % 0.30 % [facility] LYMPH % 38.3 % [facility] MONO % 8.4 % [facility] EOS % 0.6 % [facility] SERVICES BASO % 0.5 % [facility] GRAN MAT x10^3(ANC) 3.42 1.88 - 7.09 [facility] 10*3/uL SERVICES IMM GRAN x10^3 <0.03 0.00 - 0.06 [facility] 10*3/uL SERVICES LYMPH x10^3 2.52 1.32 - 3.29 [facility] 10*3/uL SERVICES MONO x10^3 0.55 0.33 - 0.92 [facility] 10*3/uL SERVICES EOS x10^3 0.04 0.03 - 0.39 [facility] 10*3/uL SERVICES BASO x10^3 0.03 0.01 - 0.07 [facility] 10*3/uL SERVICES Specimen Blood - ARM, RIGHT Performing Organization Address [facility] Centercode Phone Number [facility] CLIA: [id number], [address] [place] [address] [address] [facility] TEST, SERUM (01/30/2020 9:51 PM CDT) Pathologist Sig nature PREG SERUM Negative [facility] Specimen Blood - ARM, RIGHT Narrative Performed At Less than 10 IU/L. If low titer or ectopic is [facility] suspected, resubmit specimen in 48-72 hours. Performing Organization Address [facility] Centercoin Phone Number [facility] CLIA: [id number], [address] [place] [address] [address] [facility] CREATINE KINASE (01/30/2020 9:51 PM CDT) Pathologist Sig nature CK 344 (H) 33 - 194 U/L [facility] Specimen Blood - ARM, RIGHT Performing Organization Address [facility] Centercoin Phone Number [facility] CLIA: [id number], [address] [place] [address] [address] [facility] ETHANOL (01/30/2020 9:51 PM CDT) Pathologist Sig nature ALCOHOL <10 mg/dL [facility] Specimen Blood - ARM, RIGHT Narrative Performed At Toxic Greater than or equal to 80 mg/dL. [facility] NOTE: Whole blood values are approximately 10% to 15% lower than serum and plasma. Performing Organization Address City/[facility] Centercode Phone Number [facility] CLIA: [id number], [address] [place] [address] [address] [facility] SALICYLATE (01/30/2020 9:51 PM CDT) Pathologist Sig nature SALICYLATE <10 mg/L [facility] Specimen Blood - ARM, RIGHT Narrative Performed At Therapeutic Range: [facility] Analgesic and Antipyretic Use 20-100 mg/L Anti-Inflammatory Use 1 00-250 mg/L Toxic Range: Greater than 300 mg/L Performing Organization Address City/State/Zipcode Phone Number [facility] CLIA: [id number], [address] [place] [address] [address] [facility] ACETAMINOPHEN (01/30/2020 9:51 PM CDT) Pathologist Sig nature ACETAMINOP <10.0 (L) 10.0 - 30.0 ug/mL [facility] SERVICE S Specimen Blood - ARM, RIGHT Narrative Performed At Toxic: Greater than 200 ug/mL @ 4 hour post ingestion or [facility] greater than 50 ug/mL @ 12 hour post ingestion Performing Organization Address City/[facility] Centercoin Phone Number [facility] CLIA: [id number], [address] [place] [address] [address] [facility] DRUG PANEL 2 URINE (01/30/2020 9:51 PM CDT) AMPHET Presumptive Negative [facility] Positive (A) SERVICES LIANG U Negative Negative [facility] BENZO U Negative Negative [facility] Cocaine Metabolite Negative Negative [facility] METHADONE Negative Negative [facility] OPIATES Negative Negative [facility] PCP Negative Negative [facility] THC Negative Negative [facility] Specimen Urine - URINE, CLEAN CATCH Narrative Performed At Urine Drug Cutoff Ranges [facility] Cocaine: 150 ng/mL Benzodiazepines: 200 ng/mL Methadone: 300 ng/mL Amphetamine: 1,000 ng/mL Opiates: 300 ng/mL Cannabinoids: 50 ng/mL Phencyclidine: 25 ng/mL Barbiturates: 200 ng/mL The results are to be used only for medical (i.e., treatment) purposes. Unconfirmed screening results mus t not be used for non-medical purposes (e.g., employment cristina ting, legal testing). Performing Organization Address City/State/Zipcode Phone Number [facility] CLIA: [id number], [address] [place] [address] [address] [facility] URINALYSIS (01/30/2020 9:51 PM CDT) Pathologist Sig nature APPEARANCE Hazy (A) Clear [facility] COLOR Yellow Yellow [facility] PH 5.0 4.8 - 8.0 [facility] SP GRAVITY 1.025 1.003 - 1.030 [facility] GLU U QUAL Normal Normal [facility] BLOOD Negative Negative [facility] KETONES 5 mg/dL (A) Negative [facility] PROTEIN 30 mg/dL (A) Negative [facility] UROBILIN Normal Normal [facility] BILIRUBIN Negative Negative [facility] NITRITE Negative Negative [facility] LEUK HEATHER 75/uL (A) Negative [facility] RBC/HPF 3 0 - 3 HPF [facility] WBC/HPF 2 0 - 5 HPF [facility] BACTERIA Few (A) Negative [facility] MUCOUS Marked (A) Negative LPF [facility] SQ EPITH 3 (H) <=2 HPF [facility] Specimen Urine - URINE, CLEAN CATCH Performing Organization Address City/State/Zipcode Phone Number [facility] CLIA: [id number], [address] [place] [address] [address] [facility] COVID-19 (ID NOW RAPID TESTING) (01/30/2020 9:51 PM CDT) SARS-CoV-2 Rapid ID Not Detected Not Detected [facility] NOW SERVICES Specimen Swab - NASOPHARYNGEAL SWAB Narrative Performed At ID NOW COVID-19 Assay is an isothermal nucleic acid [facility] amplification test intended for the qualitative detect ion of nucleic acid from SARS-CoV-2 viral RNA in nasopharynge al (B[employer] SH[employer] MECH[employer]IC) specimens. It is used under Emergency Use Authori zation (EUA) by FDA. The limit of detection (LOD) of the assa y is 125 Genome Equivalents/mL. A positive result is indicative of the presence of SARS-CoV-2 RNA. Clinical correlation with patient hi story and other diagnostic information is necessary to deter mine patient infection status. A negative (Not Detected) result does not preclude SARS-CoV-2 infection. In patients with clinical sympto ms and other tests that are consistent with SARS-CoV-2 infect ion, negative results should be treated as presumptive nega tive and a new specimen should be tested with alternative P CR molecular test. Invalid: Please collect a new specimen for repeat alison ent testing if clinically indicated. Performing Organization Address City/State/Zipcode Phone Number [facility] CLIA: [id number], [place], [place] [address] [address] [facility] COMP. METABOLIC PANEL ([id number]) (01/30/2020 9:51 PM CDT) Pathologist [facility] nature NA 139 135 - 145 [facility] mmol/L SERVICES K 3.1 (L) 3.5 - 5.0 [facility] mmol/L SERVICES CL 105 98 - 108 mmol/L [facility] CO2 TOTAL 24 23 - 31 mmol/L [facility] AGAP 10 2 - 16 [facility] BUN 9 7 - 23 mg/dL [facility] GLUCOSE 97 70 - 110 mg/dL [facility] CREATININE 0.58 0.50 - 1.04 [facility] mg/dL SERVICES TOTAL BILI 0.3 0.1 - 1.1 mg/dL [facility] CALCIUM 9.1 8.6 - 10.6 [facility] mg/dL SERVICES T PROTEIN 6.4 6.3 - 8.2 g/dL [facility] ALBUMIN 3.9 3.5 - 5.0 g/dL [facility] ALK PHOS 58 34 - 122 U/L [facility] ALTv 15 5 - 35 U/L [facility] AST(SGOT) 21 13 - 40 U/L [facility] eGFR Calculation 127.7 mL/min/1.73m2 [facility] (Non- SERVICES [place]) eGFR Calculation 154.8 mL/min/1.73m2 [facility] () SERVICES Specimen Blood - ARM, RIGHT Narrative Performed At Association of Glomerular Filtration Rate (GFR) and St aging [facility] of Kidney Disease* + + +------- ------ + | GFR (mL/min/1.73 m2) | With Kidney Damage | Wi out Kidney Damage + + +------- ------ + [...] . Performing Organization Address City/State/Zipcode Phone Number [facility] CLIA: [id number], [address] [place], [place] [address] [address] [facility] documented in this encounter Visit Diagnoses Diagnosis Suicidal ideation - Primary Methamphetamine intoxication documented in this encounter Administered Medications Medication Order MAR Action Action Date Dose Rate Site KCL (KLOR-CON M20) tablet 40 mEq Given 02/01/2020 11:33 PM CDT 40 mEq 40 mEq, Oral, ONCE, 1 dose, 02/02/20 at 0030, ELIDA documented in this encounter"
--- OUTSIDE RECORDS SUMMARY | 2020-03-11 14:34 | XMS REPORT | Summary of Care ---
:1995 Author Organization [facility] Address [address] [place] [address] Care Team Providers Name Role Phone Pcp, Does Not Have A Primary Care Provider Reason for Visit Reason Comments Vaginal Discharge Headache Auth/Cert Status Reason Specialty Diagnoses / Referred By Referred To Procedures Contact Contact Emergency Medicine [facility] rgency Dept [address] [place] [phone] Fax: Encounter Details Date Type Department Care Team Description 01/28/2020 - Emergency [facility] Faulconer, Maru, Methamph etamine abuse (Primary Dx); 01/29/2020 Department DO Emotional lability; [address] [place] [address]. [place] [phone] Allergies Active Allergy Reactions Severity Noted Date Comments Ziprasidone Hcl Anaphylaxis High 10/13/2019 Cephalexin Itching 11/19/2016 Pt originally s aid she wasn't allergic to any medicines and t hen she revealed itchin g with keflex Hydrocodone-Acetaminophen Hives Low 10/13/2019 Olanzapine Anaphylaxis High 10/13/2019 documented as of this encounter (statuses as of 01/29/2020) Medications No known medicationsdocumented as of this encounter (statuses as of 01/29/2020) Active Problems Problem Noted Date Paranoia 01/28/2020 Emotional lability 01/28/2020 Methamphetamine abuse 01/28/2020 Tobacco use disorder 08/20/2013 Enlarged thyroid 08/20/2013 Overview: TSH and Free T4 ordered, referral to HR to evaluate documented as of this encounter (statuses as of 01/29/2020) Resolved Problems Problem Noted Date Resolved Date [...] stimulant, and patient remains in latent labor. 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 documented as of this encounter Last Filed Vital Signs Vital Sign Reading Time Taken Comments Blood Pressure 119/83 01/28/2020 11:17 PM CDT Pulse 85 01/28/2020 11:17 PM CDT Temperature 36.8 C (98.3 F) 01/28/2020 9:42 PM CDT Respiratory Rate 16 01/28/2020 11:17 PM CDT Oxygen Saturation 100% 01/28/2020 11:17 PM CDT Inhaled Oxygen Concentration - - Weight 70.3 kg (155 lb) 01/28/2020 9:42 PM CDT Height - - Body Mass Index 24.28 10/13/2019 9:38 AM CDT documented in this encounter Discharge Instructions AttachmentsThe following attachments cannot be sent through Care Everywhere. Delusional Disorders, Understanding (Hungarian)Getting Help, Addiction (Hungarian) documented in this encounter Plan of Treatment [...] this topic documented as of this encounter Results Not on filedocumented in this encounter Visit Diagnoses Diagnosis Methamphetamine abuse - Primary Nondependent amphetamine or related acti ng sympathomimetic abuse, unspecified Emotional lability Paranoia Delusional disorder documented in this encounter
--- OUTSIDE RECORDS SUMMARY | 2020-03-11 14:34 | XMS REPORT | Summary of Care ---
:1995 Author Organization [facility] Address [address] [place] [address] Care Team Providers Name Role Phone Pcp, Does Not Have A Primary Care Provider Encounter Details Date Type Department Care Team Description 02/13/2020 Orders Only [facility] Doctor Unassigned, No [address] [facility] Name [address] [address] Allergies Active Allergy Reactions Severity Noted Date Comments Ziprasidone Hcl Anaphylaxis High 10/13/2019 Cephalexin Itching 11/19/2016 Pt originally s aid she wasn't nasir rgic to any medicine s and then she reveal ed itching with ke flex Nystatin Unknown - See comments 01/30/2020 Hydrocodone-Acetaminop Hives Low 10/13/2019 hen Olanzapine Anaphylaxis High 10/13/2019 documented as of this encounter (statuses as of 02/13/2020) Medications No known medicationsdocumented as of this encounter (statuses as of 02/13/2020) Active Problems Problem Noted Date Paranoia 01/28/2020 Emotional lability 01/28/2020 Methamphetamine abuse 01/28/2020 Tobacco use disorder 08/20/2013 Enlarged thyroid 08/20/2013 Overview: TSH and Free T4 ordered, referral to HR to evaluate documented as of this encounter (statuses as of 02/13/2020) Resolved Problems Problem Noted Date Resolved Date [...] stimulant, and patient remains in latent labor. 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 documented as of this encounter (statuses as of 02/13/2020) Immunizations Name Administration Dates Next Due DTAP [...] of this encounter Last Filed Vital Signs Not on filedocumented in this encounter Plan of Treatment Health Maintenance Due Date Last Done Comments HPV VACCINES (3 - Female 09/13/2014 05/12/2014, 03/13/2014 3-dose series) INFLUENZA VACCINE (#1) 2020 CHLAMYDIA SCREENING 10/12/2020 10/13/2019, 03/29/2018, 12/22/2016, Additional [...] Name Priority Date/Time Associated Diagnosis Comme nts EXTERNAL PROVIDER Routine 02/13/2020 12:01 AM CDT RECORDS documented in this encounter Results Not on filedocumented in this encounter Insurance Payer Benefit Plan Subscriber ID Effective Phone Address Typ e / Group Dates [employer] [place] [id number] xxxxxxxxx 2019-Pres [phone] [address] Medicaid WOMEN ent [address] [place] [address] documented as of this encounter
--- OUTSIDE RECORDS SUMMARY | 2020-03-11 14:34 | XMS REPORT | Continuity of Care Document ---
:1995 Author Organization [facility] t Address [address] [place] [address] [place] [id number] Care Team Providers Name Role Phone Asked, Pcp Primary Care Physician Unavailable Doctor Unassigned, Name Attending Clinician Unavailable Eron PhD, Jayce Attending Clinician Unavailable Crystal ROBISON, M. 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, disorder, 00:00: st recurrent recurrent 00 episode episode 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 00:00: st 00 Depression Depression Disease Resolve 2020-02-02 2020-02-02 Verduzco d 02-01 00:00:00 20:16:32 Method i 00:00: st 00 Allergies, Adverse Reactions, Alerts Allergy Allergy Status Severity Reaction(s) Onset Inactive Treating Comm ents Source Name Type Date Date Clinician Ziprasid Propensi Active Anaphylaxis [place] [facility] Hcl ty to 02-01 [facility] adverse 00:00: st reaction 00 s to drug Hydrocod Propensi Active Hives [place] one ty to 02-01 [facility] adverse 00:00: st reaction 00 s to drug Cephalex Propensi Active Hives [place] in ty to 02-01 [facility] adverse 00:00: st reaction 00 s to drug Nystatin Propensi Active Other (See Burn [place] ty to Comments) 02-01 Method[facility] adverse 00:00: st reaction 00 s to drug Olanzapi Propensi Active Anaphylaxis [place] ty to 02-01 Method[facility] adverse 00:00: st reaction 00 s to drug ziprasid DA Active [facility] one 01-27 [place] 00:00: d 00 [facility] cephalex DA Active U 2017-08 [facility] in 08-17 Clear 00:00: [place] 00 [facility] Social History Social Habit Start Date Stop Date Quantity Comments Source History of tobacco Cigarette Smoker [facility] use Catholic History [facility] Alcohol Std Drinks Method ist History [facility] Alcohol Binge Catholic Sex Assigned At [facility] Cigarettes smoked 2020-02-04 2020-02-04 [facility] current (pack per 00:00:00 00:00:[address] day) - Reported Cigarette 2020-02-04 2020-02-04 [facility] pack-years 00:00:00 00:00:00 [facility] Alcohol intake 2020-02-04 2020-02-04 Lifetime [facility] 00:00:00 00:00:00 non-drinker Catholic (finding) History [facility] 2020-02-02 2020-02-02 1 [facility] Alcohol Frequency 00:00:00 00:00:[address] Smoking Status Start Date Stop Date Source Current every day smoker 2020-02-04 00:00:00 Danielle ston [facility] Medications Ordered Filled Start Stop Current Ordering Indication Dosage Frequency Signature Comments Components Source Medication Medication Date Date Medication? Clinician (SIG) Name Name divalproex 2019- No bipolar 500mg QD Take 4 [facility] (DEPAKOTE 02-04 disorder capsules M ethodi SPRINKLE) 00:00: 23:59 ([address] 125 mg 00 :00 total) by mouth nightly for 30 days .manic-dep ression. nicotine 2019- No smoking 1{patch QD Place 1 [facility] (NICODERM 02-04 cessation } patch on Methodi CQ) 21 00:00: 23:[address] mg/24 hr 00 :00 daily for 30 days .stop smoking. risperiDONE 2019- depression 1mg Q.5D Take 1 [facility] (RisperDAL) 02-03 treatment tablet (1 Method[facility] 1 MG tablet 00:00: 23:59 adjunct mg total) st 00 :00 by mouth 2 (two) times a day for 30 days .additiona l medication s to treat depression . benztropine 2019- drug-induce 1mg Q.5D Take 1 [facility] (COGENTIN) 02-03 d tablet (1 Met hodi 1 MG tablet 00:00: 23:59 extrapyrami mg total) st 00 :00 suzanne by mouth 2 reaction (two) times a day for 30 days .extrapyra midal symptoms as a result of taking the medication . hydrOXYzine anxiety 25mg Q4H Take 1 [facility] (ATARAX) 25 02-03 tablet (25 M ethodi MG tablet 00:00: 23:59 mg total) st 00 :00 by mouth every 4 (four) hours as needed for anxiety for up to 30 days .anxious. Vital Signs Vital Name Observation Time Observation Value Comments Source Body temperature 2020-02-04 12:22:00 37 Farida Britney New Systolic blood 2020-02-04 05:57:38 103 mm[Hg] Gisela New pressure Diastolic blood 2020-02-04 05:57:38 59 mm[Hg] Jono New pressure Heart rate 2020-02-04 05:57:38 75 /min Dax New Respiratory rate 2020-02-04 05:57:38 18 /min Britney New Body weight 2020-02-04 05:57:38 70.806 kg Dax New BMI 2020-02-04 05:57:38 24.45 kg/m2 Dax New Oxygen saturation in 2020-02-04 05:57:38 99 /min Dax New Arterial blood by Pulse oximetry Body height 2020-02-02 05:35:00 170.2 cm Dax New Procedures Procedure Date / Time Performed Performing Clinician Sour e CHLAMYDIA GONORRHOEAE 2020-02-04 12:00:00 Dahiana Hallman AND TRICHOMONAS PANEL HCG QUALITATIVE, SERUM 2020-02-02 05:57:00 Paige Joseph SCREEN HEMOGLOBIN A1C 2020-02-02 05:57:00 Paige Joseph HIV AG/AB COMBINATION 2020-02-02 05:57:00 Paige Joseph LIPID PANEL 2020-02-02 05:57:00 Paige Joseph SYPHILIS TOTAL ANTIBODY 2020-02-02 05:57:00 Paige Joseph Plan of Care Planned Activity Planned Date Details Comments Source Future Scheduled 2020-03-06 INFLUENZA VACCINE Gisela loo Catholic Test 00:00:00 [code = INFLUENZA VACCINE] Future Scheduled 2016 Screening for [facility] Test 00:00:00 malignant neoplasm of cervix (procedure) [code = 879274536] Future Scheduled 2011 CHLAMYDIA SCREENING Britney New Test 00:00:00 [code = CHLAMYDIA SCREENING] Encounters Start End Encounter Admission Attending Care Care Encounter Source Date/Time Date/Time Type Type Clinicians Facility Department ID 2020-02-13 2020-02-13 Orders Doctor ARACELI [id number] 00:00:00 00:00:00 Only Unassigned, JARED [id number] [place] [facility] [id number] 2020-02-02 2020-02-04 In[address] [facility] [id number] [facility] 00:00:00 00:00:[address] 2020-01-30 2020-02-02 Emergency Martina Chavez TRAUMA [id number] .[id number] 21:29:52 01:45:00 Bryan Fletcher CENTER [id number] 2020-01-28 2020-01-29 Emergency Satyaconer, TRAUMA [id number] 21:45:09 00:07:00 Maru CENTER [id number] 2020-01-27 2020-01-28 Emergency Cassandra, TRAUMA [id number] 20:31:44 02:01:00 Wendy [facility] [id number] 2019-10-23 2019-10-23 Telephone Brandan [facility] [id number] 00:00:00 00:00:00 [facility] [id number] [facility] [id number] 2019-10-22 2019-10-22 Telephone [facility] [id number] 00:00:00 00:00:00 [facility] [id number] [facility] [id number] [id number] Results Test Description Test Time Test Comments Results Result Comments Source Chlamydia gonorrhoeae and trichomonas panel 2020-02-05 18:53 :41 Test Item Value Reference Range Interpretation Comme nts Chlamydia trachomatis by Negative for Chlamydia Specimen InformationSpecimen PCR (test code = trachomatis. Source: Uri neSpecimen Site: 15845-2) Clean catch Neisseria gonorrhoeae by Negative for Neisseria PCR (test code = gonorrhoeae. 55958-3) Trichomonas vaginalis by Negative for Trichomonas PCR (test code = vaginalis. 17026-7) Verduzco [facility] [id number] 09:12:35 Test Item Value Reference Interpretation Comments Range Cholesterol (test 107 mg/dL <200 code = 2093-3) Triglycerides (test 84 mg/dL <150 code = 2571-8) HDL cholesterol 43 mg/dL >40 (test code = 2085-9) LDL cholesterol 56 mg/dL <100 Result obtai mariela by direct (test code = 2089-1) LDL belen surement Lipid panel SeeBelow Total Cholester ol (mg/dL) interpretation (test < 200 code = 78802-3) Desirable 200-239 Borderline -high >=240 Hi gh Triglyceri barb (mg/dL) <150 No rmal 150-199 Borderline-high 200-499 High >=500 Very high HDL Choles terol (mg/dL) <40 Low (male) < 40 Low (female) L DL Cholesterol (mg /dL) <100 Optimal 1 00-129 Near or above o ptimal 130-159 Borderline-high 160-189 High >=190 Very high Risk Cat ergories that modify LDL goals.Risk Catergories LDL goal (mg/dL )CHD and CHD risk equiva lent <100 (10-year risk >20%)Multiple ( 2+) risk factors < 130 (10-year risk = <20%)0-1 risk factors <160 (<10-ye ar risk) Defining levels of lipids in metabolic syndromeTriglyc erides > =150 mg/dLHDL Choles terol Men <40 mg/dL Women <40 mg/dL Non-HDL cholest leobardo is a second target f or therapy in personswith high triglycerides ( >=200 mg/dL) Dax NewHemoglobin [id number] 08:57:28 Test Item Value Reference Range Interpretation Comments Hemoglobin A1C (test 5.6 % 4-5.6 HbA1c c utoffs for code = 26666-0) diagnosing d iabetes:4.0% - 5.6% = normal 5.7% - 6.4% = increase d risk for diabetes (prediabetes)9> =6.5% = [id number] for glycemic contro l (ADA 2016)< 7.0% Ta rget for non cecilio lts with diabetes. More or less stringent targe ts may be appropriate for individual alison ents. <7.5% Target for Children and ad olescents with type 1 betty betes. Dax NewHIV Ag/Ab [id number] 08:55:42 Test Item Value Reference Range Interpretation Comments HIV Ag/Ab combination (test code Non-reactive Non-reactive = 5299) Verduzco MethodistSyphilis total [id number] 08:41:43 Test Item Value Reference Range Interpretation Comments Syphilis total Non-reactive Non-reactive No serologica l antibody (test code evidence of syphilis = 6194) infection. Dax NewhCG qualitative, serum [id number] 07:42:56 Test Item Value Reference Range Interpretation Comments hCG qualitative, Negative Sensitivity of HCG test: serum (test code = 25 mIU/mL 2118-8) Dax MethodmadelynURINALYSIS [id number] 16:26:00 Test Item Value Reference Range Interpretation Comments UA COLOR (test code = YELLOW COLU) UA APPEARANCE (test code CLEAR = APPU) UA GLUCOSE DIPSTICK (test NORMAL mg/dl NORMAL code = DGLUU) UA BILIRUBIN DIPSTICK NEGATIVE mg/dL NEGATIVE (test code = BILU) UA KETONE DIPSTICK (test 50 mg/dl mg/dl NEGATIVE A code = KETU) UA SPECIFIC GRAVITY (test 1.025 1.000-1.030 code = SGU) UA BLOOD DIPSTICK (test NEGATIVE Nikhil/micL NEGATIVE code = RYLAN) UA PH DIPSTICK (test code 6.0 5.0-9.0 = MONTY) UA PROTEIN DIPSTICK (test 30 mg/dl NEGATIVE A code = PROU) UA UROBILINIOGEN DIPSTICK 1.0 mg/dl mg/dl NORMAL A (test code = URO) UA NITRITE DIPSTICK (test NEGATIVE NEGATIVE code = CIARRA) UA LEUKOCYTE ESTERASE 25 Marisol/micL Marisol/micL NEGATIVE A DIPSTICK (test code = LEUU) UA WBC (test code = WBCU) 0-3 WBC/HPF NONE UA RBC (test code = RBCU) 0-2 RBC/HPF 0-3 UA EPITHELIAL CELLS (test 2-5 EPI/HPF 0-3 A code = EPIU) UA BACTERIA (test code = MOD NONE BACU) UR HCG [id number] 16:26:00 Test Item Value Reference Range Interpretation Comments UR HCG QUAL (test code = HCGQLU) NEGATIVE NEGATIVE DRUGS OF ABUSE SCREEN [id number] 16:23:00 Test Item Value Reference Interpretation Comments Range URN COCAINE (test NEGATIVE NEGATIVE Cocaine cu t-off code = COCAURN) concentratio n: 300 ng/mL URN CANNABINOIDS POSITIVE NEGATIVE A UNCONFIRMED INITIAL (test code = SCREENING ONLY; SUGGEST CANNABURN) ADDITIONALCONFI RMATORY TESTING.Cannabi noids cut-off concent ration: 50 ng/mL URN AMPHETAMINE POSITIVE NEGATIVE A UNCONFIRMED INITIAL (test code = SCREENING ONLY; SUGGEST AMPHETURN) ADDITIONALCONFI RMATORY TESTING.Ampheta mine cut-off concentration: 1000 ng/mL URN BARBITURATE NEGATIVE NEGATIVE Barbiturate cut-off (test code = concentration: 200 ng/mL BARBITURN) URN BENZODIAZEPINE NEGATIVE NEGATIVE Benzodiaz epine cut-off (test code = concentration: 200 ng/mL BENZOURN) URN OPIATES (test NEGATIVE NEGATIVE Opiates cu t-off code = OPIATURN) concentrati on: 200 ng/mL URN PHENCYCLIDINE NEGATIVE NEGATIVE Phencyclid ine(PCP) cut-off (PCP) (test code = concentra tion: 25 ng/ml PHENCURN) URN METHADONE (test NEGATIVE NEGATIVE Methadon e cut-off code = METHAURN) concentrati on: 300 ng/mL URINALYSIS [id number] 16:14:00 Test Item Value Reference Range Interpretation Comments UA COLOR (test code = YELLOW COLU) UA APPEARANCE (test code CLEAR = APPU) UA GLUCOSE DIPSTICK (test NORMAL mg/dl NORMAL code = DGLUU) UA BILIRUBIN DIPSTICK NEGATIVE mg/dL NEGATIVE (test code = BILU) UA KETONE DIPSTICK (test 50 mg/dl mg/dl NEGATIVE A code = KETU) UA SPECIFIC GRAVITY (test 1.025 1.000-1.030 code = SGU) UA BLOOD DIPSTICK (test NEGATIVE Nikhil/micL NEGATIVE code = RYLAN) UA PH DIPSTICK (test code 6.0 5.0-9.0 = MONTY) UA PROTEIN DIPSTICK (test 30 mg/dl NEGATIVE A code = PROU) UA UROBILINIOGEN DIPSTICK 1.0 mg/dl mg/dl NORMAL A (test code = URO) UA NITRITE DIPSTICK (test NEGATIVE NEGATIVE code = CIARRA) UA LEUKOCYTE ESTERASE 25 Marisol/micL Marisol/micL NEGATIVE A DIPSTICK (test code = LEUU) UA WBC (test code = WBCU) WBC/HPF NONE UA RBC (test code = RBCU) RBC/HPF 0-3 UA EPITHELIAL CELLS (test EPI/HPF 0-3 code = EPIU) UA BACTERIA (test code = NONE BACU) UR HCG [id number] 16:14:00 Test Item Value Reference Range Interpretation Comments UR HCG QUAL (test code = HCGQLU) NEGATIVE NEGATIVE URINALYSIS [id number] 16:12:00 Test Item Value Reference Range Interpretation Comments UA COLOR (test code = YELLOW COLU) UA APPEARANCE (test code CLEAR = APPU) UA GLUCOSE DIPSTICK (test NORMAL mg/dl NORMAL code = DGLUU) UA BILIRUBIN DIPSTICK NEGATIVE mg/dL NEGATIVE (test code = BILU) UA KETONE DIPSTICK (test 50 mg/dl mg/dl NEGATIVE A code = KETU) UA SPECIFIC GRAVITY (test 1.025 1.000-1.030 code = SGU) UA BLOOD DIPSTICK (test NEGATIVE Nikhil/micL NEGATIVE code = RYLAN) UA PH DIPSTICK (test code 6.0 5.0-9.0 = MONTY) UA PROTEIN DIPSTICK (test 30 mg/dl NEGATIVE A code = PROU) UA UROBILINIOGEN DIPSTICK 1.0 mg/dl mg/dl NORMAL A (test code = URO) UA NITRITE DIPSTICK (test NEGATIVE NEGATIVE code = CIARRA) UA LEUKOCYTE ESTERASE 25 Marisol/micL Marisol/micL NEGATIVE A DIPSTICK (test code = LEUU) UA WBC (test code = WBCU) WBC/HPF NONE UA RBC (test code = RBCU) RBC/HPF 0-3 UA EPITHELIAL CELLS (test EPI/HPF 0-3 code = EPIU) UA BACTERIA (test code = NONE BACU) UR HCG [id number] 16:12:00 Test Item Value Reference Range Interpretation Comments UR HCG QUAL (test code = HCGQLU) NEGATIVE COMPREHENSIVE METABOLIC [id number] 10:55:00 Test Item Value Reference Range Interpretation Comments SODIUM (test code = NA) 139 mmol/l 134.0-147.0 N POTASSIUM (test code = K) 3.9 mmol/L 3.6-5.2 N CHLORIDE (test code = CL) 102 mmol/l 98.0-107.0 N CARBON DIOXIDE (test code = CO2) 28.0 mmol/l 21.0-33.0 N ANION GAP (test code = GAP) 12.9 0-20 N GLUCOSE (test code = GLU) 101 mg/dl 70.0-110.0 N BLOOD UREA NITROGEN (test code = 11 mg/dl 7.0-18.0 N BUN) CREATININE (test code = CREAT) 0.69 mg/dL 0.60-1.30 N GFR NON BLACK (test code = 112 mL/min 110-120 N GFRNONBLACK) GFR BLACK (test code = GFRBLACK) 135 mL/min 133-145 N TOTAL PROTEIN (test code = PROT) 7.9 GM/DL 6.0-8.1 N ALBUMIN (test code = ALB) 4.0 gm/dL 3.2-4.7 N CALCIUM (test code = CA) 9.3 mg/dl 8.0-10.5 N BILIRUBIN TOTAL (test code = 0.3 mg/dl 0.0-1.0 N BILT) SGOT/AST (test code = AST) 16 Units/L 15.0-37.0 N SGPT/ALT (test code = ALT) 23 Units/L 12.0-78.0 N ALKALINE PHOSPHATASE TOTAL (test 85 Units/L 50.0-136.0 N code = ALKP) HCG SERUM [id number] 10:55:00 Test Item Value Reference Range Interpretation Comments HCG SERUM QUAL (test code = HCGQL) NEGATIVE NEGATIVE [id number] 10:55:00 Test Item Value Reference Range Interpretation Comments ALCOHOL (test code 0.00 gm/dL 0.00-0.00 N ETHYL ALC OHOL VALUES - = ALC) INTERPRETATION: 0.050 GM/DL - NOT INT OXICATED 0.100 GM/DL - INTOXICATED 0.3 50-0.450 GM/DL - SEVEREL Y INTOXICATED 0.5 50 GM/DL- FATAL INTOXICAT ION COMPREHENSIVE METABOLIC [id number] 10:50:00 Test Item Value Reference Range Interpretation Comments SODIUM (test code = NA) 139 mmol/l 134.0-147.0 N POTASSIUM (test code = K) 3.9 mmol/L 3.6-5.2 N CHLORIDE (test code = CL) 102 mmol/l 98.0-107.0 N CARBON DIOXIDE (test code = CO2) 28.0 mmol/l 21.0-33.0 N ANION GAP (test code = GAP) 12.9 0-20 N GLUCOSE (test code = GLU) mg/dl 70.0-110.0 BLOOD UREA NITROGEN (test code = mg/dl 7.0-18.0 BUN) CREATININE (test code = CREAT) mg/dL 0.60-1.30 GFR NON BLACK (test code = mL/min 110-120 GFRNONBLACK) GFR BLACK (test code = GFRBLACK) mL/min 133-145 TOTAL PROTEIN (test code = PROT) gm/dL 6.4-8.2 ALBUMIN (test code = ALB) gm/dl 3.2-4.7 CALCIUM (test code = CA) mg/dl 8.0-10.5 BILIRUBIN TOTAL (test code = mg/dl 0.0-1.0 BILT) SGOT/AST (test code = AST) Units/L 15.0-37.0 SGPT/ALT (test code = ALT) Units/L 12.0-78.0 ALKALINE PHOSPHATASE TOTAL (test Units/L 50.0-136.0 code = ALKP) HCG SERUM [id number] 10:50:00 Test Item Value Reference Range Interpretation Comments HCG SERUM QUAL (test code = HCGQL) NEGATIVE NEGATIVE [id number] 10:50:00 Test Item Value Reference Range Interpretation Comments ALCOHOL (test code = ALC) gm/dL 0.00-0.00 URINALYSIS [id number] 10:49:00 Test Item Value Reference Range Interpretation Comments UA COLOR (test code = YELLOW COLU) UA APPEARANCE (test code CLEAR = APPU) UA GLUCOSE DIPSTICK (test NORMAL mg/dl NORMAL code = DGLUU) UA BILIRUBIN DIPSTICK NEGATIVE mg/dL NEGATIVE (test code = BILU) UA KETONE DIPSTICK (test NEGATIVE mg/dl NEGATIVE code = KETU) UA SPECIFIC GRAVITY (test 1.025 1.000-1.030 code = SGU) UA BLOOD DIPSTICK (test NEGATIVE Nikhil/micL NEGATIVE code = RYLAN) UA PH DIPSTICK (test code 5.0 5.0-9.0 = MONTY) UA PROTEIN DIPSTICK (test NEGATIVE mg/dl NEGATIVE code = PROU) UA UROBILINIOGEN DIPSTICK NORMAL mg/dl NORMAL (test code = URO) UA NITRITE DIPSTICK (test NEGATIVE NEGATIVE code = CIARRA) UA LEUKOCYTE ESTERASE 25 Marisol/micL Marisol/micL NEGATIVE A DIPSTICK (test code = LEUU) UA WBC (test code = WBCU) 0-3 WBC/HPF NONE UA RBC (test code = RBCU) 0-2 RBC/HPF 0-3 UA EPITHELIAL CELLS (test 2-5 EPI/HPF 0-3 A code = EPIU) UA BACTERIA (test code = MOD NONE BACU) UA MUCUS (test code = 2+ MUCU) COMPREHENSIVE METABOLIC [id number] 10:45:00 Test Item Value Reference Range Interpretation Comments SODIUM (test code = NA) mmol/l 134.0-147.0 POTASSIUM (test code = K) mmol/L 3.6-5.2 CHLORIDE (test code = CL) mmol/l 98.0-107.0 CARBON DIOXIDE (test code = CO2) mmol/l 21.0-33.0 ANION GAP (test code = GAP) 0-20 GLUCOSE (test code = GLU) mg/dl 70.0-110.0 BLOOD UREA NITROGEN (test code = mg/dl 7.0-18.0 BUN) CREATININE (test code = CREAT) mg/dL 0.60-1.30 GFR NON BLACK (test code = mL/min 110-120 GFRNONBLACK) GFR BLACK (test code = GFRBLACK) mL/min 133-145 TOTAL PROTEIN (test code = PROT) gm/dL 6.4-8.2 ALBUMIN (test code = ALB) gm/dl 3.2-4.7 CALCIUM (test code = CA) mg/dl 8.0-10.5 BILIRUBIN TOTAL (test code = BILT) mg/dl 0.0-1.0 SGOT/AST (test code = AST) Units/L 15.0-37.0 SGPT/ALT (test code = ALT) Units/L 12.0-78.0 ALKALINE PHOSPHATASE TOTAL (test Units/L 50.0-136.0 code = ALKP) HCG SERUM [id number] 10:45:00 Test Item Value Reference Range Interpretation Comments HCG SERUM QUAL (test code = HCGQL) NEGATIVE NEGATIVE [id number] 10:45:00 Test Item Value Reference Range Interpretation Comments ALCOHOL (test code = ALC) gm/dL 0.00-0.00 DRUGS OF ABUSE SCREEN [id number] 10:44:00 Test Item Value Reference Interpretation Comments Range URN COCAINE (test POSITIVE NEGATIVE A UNCONFIRME D INITIAL code = COCAURN) SCREENING ON LY; SUGGEST ADDITIONALCONFI RMATORY TESTING.Cocaine cut-off concentration: 300 ng/mL URN CANNABINOIDS NEGATIVE NEGATIVE Cannabinoid s cut-off (test code = concentration: 50 ng/mL CANNABURN) URN AMPHETAMINE NEGATIVE NEGATIVE Amphetamine cut-off (test code = concentration: 1000 ng/mL AMPHETURN) URN BARBITURATE NEGATIVE NEGATIVE Barbiturate cut-off (test code = concentration: 200 ng/mL BARBITURN) URN BENZODIAZEPINE NEGATIVE NEGATIVE Benzodiaz epine cut-off (test code = concentration: 200 ng/mL BENZOURN) URN OPIATES (test NEGATIVE NEGATIVE Opiates cu t-off code = OPIATURN) concentrati on: 200 ng/mL URN PHENCYCLIDINE NEGATIVE NEGATIVE Phencyclid ine(PCP) cut-off (PCP) (test code = concentra tion: 25 ng/ml PHENCURN) URN METHADONE (test NEGATIVE NEGATIVE Methadon e cut-off code = METHAURN) concentrati on: 300 ng/mL URINALYSIS [id number] 10:34:00 Test Item Value Reference Range Interpretation Comments UA COLOR (test code = COLU) UA APPEARANCE (test code = APPU) UA GLUCOSE DIPSTICK (test NORMAL mg/dl NORMAL code = DGLUU) UA BILIRUBIN DIPSTICK NEGATIVE mg/dL NEGATIVE (test code = BILU) UA KETONE DIPSTICK (test NEGATIVE mg/dl NEGATIVE code = KETU) UA SPECIFIC GRAVITY (test 1.025 1.000-1.030 code = SGU) UA BLOOD DIPSTICK (test NEGATIVE Nikhil/micL NEGATIVE code = RYLAN) UA PH DIPSTICK (test code 5.0 5.0-9.0 = MONTY) UA PROTEIN DIPSTICK (test NEGATIVE mg/dl NEGATIVE code = PROU) UA UROBILINIOGEN DIPSTICK NORMAL mg/dl NORMAL (test code = URO) UA NITRITE DIPSTICK (test NEGATIVE NEGATIVE code = CIARRA) UA LEUKOCYTE ESTERASE 25 Marisol/micL Marisol/micL NEGATIVE A DIPSTICK (test code = LEUU) UA WBC (test code = WBCU) WBC/HPF NONE UA RBC (test code = RBCU) RBC/HPF 0-3 UA EPITHELIAL CELLS (test EPI/HPF 0-3 code = EPIU) UA BACTERIA (test code = NONE BACU) CBC W/AUTO [id number] 10:32:00 Test Item Value Reference Range Interpretation Comments WHITE BLOOD CELL (test code = 10.1 K/mm3 4.5-11.0 N WBC) RED BLOOD CELL (test code = 4.73 M/mm3 3.80-5.20 N RBC) HEMOGLOBIN (test code = HGB) 14.4 gm/dL 12.0-16.0 N HEMATOCRIT (test code = HCT) 43.9 % 36.0-48.0 N MEAN CELL VOLUME (test code = 92.8 UM3 82.0-99.0 N MCV) MEAN CELL HGB (test code = MCH) 30.4 UUG 25.5-32.5 N MEAN CELL HGB CONCETRATION 32.8 gm/dL 29.0-35.5 N (test code = MCHC) RED CELL DISTRIBUTION WIDTH 13.0 % 11.5-15.0 N (test code = RDW) RED CELL DISTRIBUTION WIDTH SD 44.1 fL 34.8-50.2 N (test code = RDW-SD) PLATELET COUNT (test code = 359 K/mm3 150-400 N PLT) MEAN PLATELET VOLUME (test code 9.6 fl 7.4-10.4 N = MPV) NEUTROPHIL % (test code = NT%) 73.2 % 49.0-76.0 N IMMATURE GRANULOCYTE % (test 0.7 % 0.0-0.4 H code = IG%) LYMPHOCYTE % (test code = LY%) 19.3 % 23.0-38.0 L MONOCYTE % (test code = MO%) 6.2 % 1.0-10.0 N EOSINOPHIL % (test code = EO%) 0.4 % 1.0-5.0 L BASOPHIL % (test code = BA%) 0.2 % 0.0-1.0 N NEUTROPHIL # (test code = NT#) 7.4 K/mm3 2.4-6.3 H IMMATURE GRANULOCYTE # (test 0.07 x10 3/uL 0.00-0.07 N code = IG#) LYMPHOCYTE # (test code = LY#) 1.9 K/mm3 1.2-4.0 N MONOCYTE # (test code = MO#) 0.6 K/mm3 0.0-0.6 N EOSINOPHIL # (test code = EO#) 0.0 K/MM3 0.0-0.7 N BASOPHIL # (test code = BA#) 0.0 K/mm3 0.0-0.2 N
== END 2020-03-11 13:51 | disposition home or self-care (01) ==
LOC: ER 12:55
DX: K08.89 Other specified disorders of teeth and supporting structures (principal); R68.84 Jaw pain; Z88.1 Allergy status to other antibiotic agents; Z88.6 Allergy status to analgesic agent; Z88.8 Allergy status to other drugs, medicaments and biological substances; F17.210 Nicotine dependence, cigarettes, uncomplicated
CPT/HCPCS: 99283